=== PATIENT | male | born 1990 | race Caucasian/White ===

== ENCOUNTER 2017-10-19 15:26 | Emergency (ER) | payer SELFPAY ==
[2017-10-19 15:30] VITALS: BP 115/57; BMI 19.3
[2017-10-19] MEDS ORDERED: ZOFRAN INJ 4 MG VIAL IM ONE (15:53)
[2017-10-19] MEDS ORDERED: MORPHINE SULFATE INJ 4 MG IM ONE (15:53)
[2017-10-19] MEDS ORDERED: ZOFRAN INJ 4 MG VIAL ONE (15:54)
[2017-10-19] MEDS ORDERED: MORPHINE SULFATE INJ 4 MG ONE (15:55)
[2017-10-19] MEDS ORDERED: ATIVAN INJ 2 MG VIAL IVP ONE (15:58)
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
--- NOTE | 2017-10-19 16:26 | RAD ---
Examination: Left shoulder, three views History: Trauma Findings: Although not clearly defined there is suggestion of a scapular fracture probably involving the glenoid fossa. The AC joint is preserved. The humeral head is not definitely displaced. Impression: Findings suggest a displaced and acute scapular fracture. Follow-up with CT should be con sidered for more accurate and definitive evaluation of humeral position. Reported By:
--- NOTE | 2017-10-19 16:35 | RAD ---
Examination: Right hand, three views History: Trauma Findings: No definite fracture, dislocation or articular deformity is identified. Impression: No acute or significant findings in the right hand. Reported By:
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
--- NOTE | 2017-10-19 16:53 | CT ---
History: Left scapular fracture and left shoulder pain. Exam: Noncontrast CT examination of the left shoulder joint. Technique: Axial noncontrast CT images of the left shoulder joint were performed with sagittal and co tyrell reformatted images without benefit of IV contrast this examination. Comparison: None. Findings: There is a displaced and partially comminuted left central scapular body fracture which is best seen on images 20. 3 through 47 of series 2 with the greatest degree of fracture fragment dysplasia and fr om the scapular glenoid to the central scapular body which is displaced posteriorly by 7 mm. There is no humeral head dislocation or subluxation observed. This scapular fracture extends into the scapula r spine as well. There is adjacent soft tissue swelling, intramuscular hemorrhage, and edema observed . There is a nondisplaced left distal clavicular diaphyseal fracture with extensive edema seen adjace nt to the navicular fracture as well. There is a nondisplaced left posterior 2nd rib fracture. There is a tiny left-sided pneumothorax with pulmonary contusion seen throughout the left mid lung zone and left lower lobe. No other bony injury abnormality is seen. Impression: Displaced and partially comminuted left central scapular body fracture which is best seen on images 2 0. 3 through 47 of series 2 with the greatest degree of fracture fragment dysplasia and from the scap ular glenoid to the central scapular body which is displaced posteriorly by 7 mm. This scapular fract ure extends into the scapular spine as well. There is adjacent soft tissue swelling, intramuscular he morrhage, and edema observed There is no humeral head dislocation or subluxation observed. Nondisplaced left distal clavicular diaphyseal fracture with extensive edema seen adjacent to the rachel icular fracture as well. There is a nondisplaced left posterior 2nd rib fracture. There is a tiny left-sided pneumothorax with pulmonary contusion(s) seen throughout the left mid lung zone and left lower lobe. No other bony injury abnormality is seen. Reported By:
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
[2017-10-19] MEDS ORDERED: DILAUDID INJ ONE (18:19)
== END 2017-10-19 18:20 | disposition short-term general hospital (02) ==
LOC: ER 15:38
DX: S42.002A Fracture of unspecified part of left clavicle, initial encounter for closed fracture (principal); S42.145A Nondisplaced fracture of glenoid cavity of scapula, left shoulder, initial encounter for closed fracture; S22.42XA Multiple fractures of ribs, left side, initial encounter for closed fracture; R07.82 Intercostal pain; V86.59XA Driver of other special all-terrain or other off-road motor vehicle injured in nontraffic accident, initial encounter; Y92.9 Unspecified place or not applicable; R51 Headache
CPT/HCPCS: 70450; 71250; 72125; 73030; 73130; 73200; 96365; 96372; 96374; 99284; 99285; A4222; J1170; J2270; J2405